=== PATIENT | male | born 1970 | race Caucasian/White ===

== ENCOUNTER 2025-06-05 15:30 | Emergency (ER) | payer OTHER, SELFPAY ==
[2025-06-05 15:36] VITALS: BP 151/93
[2025-06-05 16:00] LABS: Hematocrit 45.4 % (39.0-52.0); Hemoglobin 15.7 g/dL (13.0-18.0); Mean Corp Hgb Conc. 34.6 g/dL (33.0-37.0); Mean Corpuscular Volume 89.4 fL (80.0-94.0); Nucleated Red Blood Cells % 0 % (-); Platelet Count 245 10^3/uL (130-400); Red Cell Dist. Width 12.6 % (11.5-14.5)
[2025-06-05 16:15] LABS: ALT (SGPT) 305 U/L (0-50); AST (SGOT) 42 U/L (17-59); Albumin 4.4 g/dl (3.5-5.0); Alkaline Phosphatase 129 U/L (38-126); Blood Urea Nitrogen 14 mg/dl (9-20); Calcium 9.3 mg/dl (8.4-10.2); Carbon Dioxide 25 mmol/L (22-30); Chloride 107 mmol/L (98-107); Glucose 129 mg/dl (70-99); Lipase 117 U/L (23-300); Potassium 4.0 mmol/L (3.5-5.1); Sodium 139 mmol/L (135-145); Total Protein 6.9 g/dl (6.3-8.2); eGFR > 60.00
[2025-06-05 17:54] VITALS: BMI 32.6
[2025-06-05 18:00] VITALS: BP 149/103
--- NOTE | 2025-06-05 20:56 | ED.GENMED ---
History of Present Illness
General
Chief Complaint: Abnormal Lab Value
Source: patient
Exam Limitations: none
Time Seen by Provider: 06/05/25 17:52
History of Present Illness
History of Present Illness:
55-year-old male presents in referral from family doctor as he was told that his LFTs are very high. He was sick over the weekend with nausea vomiting and diarrhea. This has since resolved. His pain that he had also resolved. Currently denies
pain chest pain or shortness of breath. No fevers. He thinks he ate a bad salad at a restaurant.
Past History
Past History
ED Past Medical History: None
Social History
Personal:
Living: with family
Employment: Employed
Phy Exam
Physical Exam
Physical Exam:
General: Well-appearing male no acute respiratory distress
HEENT normal cephalic atraumatic sclera anicteric
Heart: Regular rate and rhythm
Lungs: Clear no wheeze
Abdomen soft nontender nondistended no guarding or rebound
Extremities: No cyanosis
Course
Orders/Labs/Results
Orders:
Orders
06/05/25 15:43
Complete Blood Count/With Diff Urgent
Comprehensive Metabolic Panel Urgent
Lipase Urgent
06/05/25 18:05
US Abdomen Complete/Upper Urgent
Comment:
Reason For Exam: elevated LFT
Abnormal Lab Results
06/05/25
15:43
Glucose 129 H mg/dl
(70-99)
ALT 305 H U/L
(0-50)
Alkaline Phosphatase 129 H U/L
(38-126)
06/05/25 15:43
06/05/25 15:43
Vital Signs
Initial and Last Documented VS:
Initial Vital Signs
Temp Pulse Resp BP Pulse Ox
98.1 F 89 16 151/93 97
06/05/25 15:36 06/05/25 15:36 06/05/25 15:36 06/05/25 15:36 06/05/25 15:36
Last Documented Vital Signs
Temp Pulse Resp BP Pulse Ox
98.1 F 81 18 149/103 94
06/05/25 15:36 06/05/25 18:00 06/05/25 18:00 06/05/25 18:00 06/05/25 18:05
MDM/Problems Addressed
Differential Diagnosis Includes:
Patient sent in for abnormal little liver function test. Will check labs. Ultrasound ordered. Currently no complaints looks well
*Pulse Oximetry
SaO2: 94
Oxygen Mode of Delivery: Room air
Patient hypoxic: no
*Critical Care Note
Total Time (30-74mins, 75-104mins- exclusive of procedures): Not Applicable
Update Note
Update Note:
LFTs reviewed ALT is over 300 but patient tells me it was over 900 over the weekend. He has no symptoms here. Ultrasound shows likely large gallstone. Patient is currently not in any pain. Will recommend that he follow-up with a general surgery
in 2 consider cholecystectomy electively but at this time no indication for admission
ED Attending Note
-
Portions of this chart may have been created with voice recognition software.� Occasional wrong word or��sound alike� substitutions may have occurred due to the inherent limitations of voice recognition software.
Discharge Plan
Departure
Patient Disposition: Home (Routine Discharge)
Date of Disposition: 06/05/25
Time of Disposition: 20:56
Patient with high blood pressure during this ER visit?: No
Discharge Problem:
Abdominal pain
Prescriptions:
No Action
ondansetron 4 MG tablet,disintegrating
4 mg PO TIDPRN PRN (Reason: nausea/vomiting) Qty: 12 0RF
Referrals:
Paul Syed MD [Family Provider, Family Practice]
Loco Crowe MD [Active, Surgical]
Activity Restrictions/Additional Instructions:
As discussed, there is a large gallstone in your gallbladder. Please follow-up with general surgery to consider removal of your gallbladder. Please recheck with your family doctor next week for recheck of the blood work.
Interventions
Interventions:
*Risk Screen - Suicide Last Done: 06/05/25 15:36
*General Assessment Last Done: 06/05/25 15:36
*Neglect/Abuse Screening Last Done: 06/05/25 15:36
*ED- Fall Risk Assessment Last Done: 06/05/25 18:03
*ED COVID-19 Vaccine History Last Done: 06/05/25 15:36
*ED Influenza Vaccine History Last Done: 06/05/25 15:36
Discharge Date and Time
Print Language: BHUTANESE
== END 2025-06-05 21:04 | disposition home or self-care (01) ==
LOC: EMR 15:30
PROVIDERS: EMERGENCY PHYSICIAN Emergency Medicine; FAMILY PHYSICIAN Family Medicine
DX: R10.9 Unspecified abdominal pain (principal); R79.89 Other specified abnormal findings of blood chemistry
CPT/HCPCS: 99284; 76700; 80053; 83690; 85025

== ENCOUNTER → 2025-06-15 07:21 | Outpatient (REF) | payer OTHER, SELFPAY | LOC: MRI 3T 07:21 | PROVIDERS: ATTENDING PHYSICIAN Physician Assistant | DX: G25.2 Other specified forms of tremor (principal) | CPT/HCPCS: 70553; A9575 ==